=== PATIENT | female | born 1945 | race Caucasian/White ===

== ENCOUNTER 2023-08-23 12:52 | Emergency (ER) | payer MEDICARE, BC, SELFPAY ==
[2023-08-23 12:54] VITALS: BP 157/79
--- NOTE | 2023-08-23 13:31 | ED.GENMED ---
History of Present Illness
<Harika Mike PA-C - Last Filed: 08/26/23 09:09>
General
Chief Complaint: Change in Mental Status
Source: patient and spouse
Exam Limitations: none
Time Seen by Provider: 08/23/23 13:03
Nursing documentation reviewed up to this point in time: agreed with
Travel History
Have you had any contact with someone who has COVID-19?: No
Do you have any symptoms of coronavirus? Fever > 100 degrees, chills, cough, shortness of breath, sore throat, loss of taste or smell, muscle aches, or headache?: No
History of Present Illness
History of Present Illness:
pt is a 78 y/o F with h/o hydrocephalus s/p SENIOR ACCOUNT DIRECTOR shunt (maria fernanda 2021)
here for some mild confusion/brain fog
pt's says that she is sometimes forgetful and that has been worsening the past few months
but today around 10 am while on a phone call to the [facility] pt was more confused than expected. 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
was askign her to do. her noticed it and when she got off the phone, even she noticed it and said she just didn't feel herself.
about an hour later they went to the [employer] and while addressing a check, she made a mistake where she addressed it to be put into the same account that it was in instead of a different account. pt didn't realize she made this mistake until the [place]
pointed it out. her drove them home and they called the PCP, spoke with RN whol told her to come in
pt had a lheadache yesterday which resolved
has had a few days of URI sxs, got tested for covid 3 days ago and was neg
has been using nyquil at night, not in excess.
she otherwise now feels well
denies fever, headache, vision changes, balance problems, incontience, vomiting, diarrhea, cp,s ob, abdominal pain, dysuria, urinary frequency, anxiety.
Past History
<Harika Mike PA-C - Last Filed: 08/26/23 09:09>
Past History
ED Past Medical History: HTN
ED Past Surgical History: None
Social History
Tobacco: Non-smoker
Drug: None
Personal:
Living: with family
Review of Systems
<Harika Mike PA-C - Last Filed: 08/26/23 09:09>
Review of Systems
Allergies reviewed?: Yes
All Other Systems: Not applicable
Phy Exam
<LYLY Morales Last Filed: 08/26/23 09:09>
Physical Exam
Physical Exam:
GENERAL: Alert , in no apparent distress
head: atraumatic, right SENIOR ACCOUNT DIRECTOR shunt nontender, no erythema
EYE: pupils equal and reactive
NECK: Supple
ENT: b/l TM s clear, pharynx nonerythematous no tonsillar hypertrophy or exudates
CARDIAC: Regular rate and rhythm, no edema
LUNGS: Clear breath sounds bilaterally, no acute respiratory distress, no wheezes/rales/rhonchi, occ cough
ABDOMEN: Soft, without focal tenderness, no r/g, no cvat, normal bowel sounds
NEUROLOGICAL: Alert and oriented, no focal neuro deficits
SKIN: Warm and dry, skin intact.
MUSCULOSKELETAL: No edema, well perfused.
PSYCH: Normal and appropriate interaction.
Course
<Harika Mike PA-C - Last Filed: 08/26/23 09:09>
Orders/Labs/Results
Orders:
Orders
08/23/23
CR Skull < 4 Views Urgent
Reason For Exam: SHUNT
08/23/23 13:28
Electrocardiogram (*1) Urgent
Reason for Study: Fatigue / Weakness
CT Head W/o Iv Contrast Urgent
Comment:
Reason For Exam: ams, h/o cigar packer shunt
EKG- Treatment ONCE
08/23/23 13:57
COVID-19 Antigen Urgent
Source: Nasal Swab
Complete Blood Count/With Diff Urgent
Comprehensive Metabolic Panel Urgent
TSH Reflex To Free T4 Urgent
08/23/23 15:11
Consult Neurology [NEUROLOGY CONSULT] Urgent
Consulting Provider: Sri Miner
Was physician already notified: Yes
08/23/23 15:14
CR Abdomen - 2 Views Urgent
Reason For Exam: shutn eval
CR Chest - 2 Views Urgent
Comment:
Reason For Exam: shunt eval
08/23/23 16:34
Urinalysis Reflex To Culture Urgent
Date Specimen was Collected: 08/23/23
Time Specimen was Collected: 16:30
Abnormal Lab Results
08/23/23
13:57
MCH 31.5 H pg
(27.0-31.0)
Absolute Lymphs (auto) 0.6 L 10^3/uL
(1.2-3.4)
Neutrophils % 83.8 H %
(42.2-75.2)
Lymphocytes % 8.2 L %
(20.5-51.1)
Chloride 109 H mmol/L
(98-107)
Glucose 112 H mg/dl
(70-99)
AST 46 H U/L
(14-36)
08/23/23 13:57
08/23/23 13:57
Vital Signs
Initial and Last Documented VS:
Initial Vital Signs
Temp Pulse Resp BP Pulse Ox
98.2 F 96 16 157/79 98
08/23/23 12:54 08/23/23 12:54 02/12/24 12:54 08/23/23 12:54 08/23/23 12:54
Last Documented Vital Signs
Temp Pulse Resp BP Pulse Ox
98.2 F 96 16 138/74 95
08/23/23 12:54 08/23/23 12:54 08/23/23 12:54 08/23/23 16:52 08/23/23 17:00
<Ramehs Bates MD - Last Filed: 08/23/23 16:00>
Orders/Labs/Results
Orders:
Orders
08/23/23
CR Skull < 4 Views Urgent
Reason For Exam: SHUNT
08/23/23 13:28
Electrocardiogram (*1) Urgent
Reason for Study: Fatigue / Weakness
CT Head W/o Iv Contrast Urgent
Comment:
Reason For Exam: ams, h/o cigar packer shunt
EKG- Treatment ONCE
08/23/23 13:57
COVID-19 Antigen Urgent
Source: Nasal Swab
Complete Blood Count/With Diff Urgent
Comprehensive Metabolic Panel Urgent
TSH Reflex To Free T4 Urgent
08/23/23 15:11
Consult Neurology [NEUROLOGY CONSULT] Urgent
Consulting Provider: Sri Miner
Was physician already notified: Yes
08/23/23 15:14
CR Abdomen - 2 Views Urgent
Reason For Exam: shutn eval
CR Chest - 2 Views Urgent
Comment:
Reason For Exam: shunt eval
08/23/23 16:34
Urinalysis Reflex To Culture Urgent
Date Specimen was Collected: 08/23/23
Time Specimen was Collected: 16:30
Abnormal Lab Results
08/23/23
13:57
MCH 31.5 H pg
(27.0-31.0)
Absolute Lymphs (auto) 0.6 L 10^3/uL
(1.2-3.4)
Neutrophils % 83.8 H %
(42.2-75.2)
Lymphocytes % 8.2 L %
(20.5-51.1)
Chloride 109 H mmol/L
(98-107)
Glucose 112 H mg/dl
(70-99)
AST 46 H U/L
(14-36)
08/23/23 13:57
08/23/23 13:57
Vital Signs
Initial and Last Documented VS:
Initial Vital Signs
Temp Pulse Resp BP Pulse Ox
98.2 F 96 16 157/79 98
08/23/23 12:54 08/23/23 12:54 08/23/23 12:54 08/23/23 12:54 08/23/23 12:54
Last Documented Vital Signs
Temp Pulse Resp BP Pulse Ox
98.2 F 96 16 138/74 95
08/23/23 12:54 08/23/23 12:54 08/23/23 12:54 08/23/23 16:52 08/23/23 17:00
<Harika Mike PA-C - Last Filed: 08/26/23 09:09>
MDM/Problems Addressed
Differential Diagnosis Includes:
uti, hydrocephalus/shunt malfunction, infection
MDM/Problems Addressed:
78 y/ F with h/o hydrocephalus s/p cigar packer shunt
here with some mild confusion today noticed by herself and her
pt otherwise feels fine
her vitals stable
her exam is normal
she is able to communicate normally without any focal deficits and does not seem confused
her labs are reassuring
her ct shows some ventriculomegaly but we are not able to compare to more recent scans
i spoke with the CARE PROCESS MANAGER adelita for her surgeon at [facility] where her shunt was placed. i was able to send a video of the ct scan and the NSG attg compared to previous which looked similar;she has always still had some hydrocephalus despite the shunt s o
they think they need to adjust the shunt and that is likely contributing to her confusion
since she is otherwise stable, steady gait etc, she is ok to go home and f/u in2 dasy for this adjustment
sabrina by ed attending who agreed.
<Harika Mike PA-C - Last Filed: 08/26/23 09:09>
*Critical Care Note
Total Time (30-74mins, 75-104mins- exclusive of procedures): Not Applicable
ED Attending Note
<Harika Mike PA-C - Last Filed: 08/26/23 09:09>
-
Portions of this chart may have been created with voice recognition software.� Occasional wrong word or��sound alike� substitutions may have occurred due to the inherent limitations of voice recognition software.
<Ramesh Bates MD - Last Filed: 08/23/23 16:00>
ED Attending Note
Patient seen and examined by attending physician: Yes
ED Attending Note:
I have seen and evaluated the patient with a [id number] encounter. I have spoken to the advance practicer provider and involved in the medical history, the physical exam, medical decision making.
Evaluation and management service: agree unless noted differently below.
Results interpretation: agree unless noted differently below.
Focused HPI: 78-year-old female with past medical history of hypertension, hydrocephalus status post SENIOR ACCOUNT DIRECTOR shunt (performed 2021 at [facility]) who presents to the emergency department for evaluation of slight confusion. Her is at bedside and
describes 2 episodes in the past 24 hours where she demonstrated some subtle confusion/departure from her baseline behavior. He describes an episode where she had some difficulty comprehending a phone call and an episode today where she filled out
a checked and addressed it to the wrong person. She says this is very unusual for her. No persistent confusion. Patient denies headache, vision changes, speech changes, dizziness, gait abnormalities, focal weakness or numbness in her extremities,
urinary issues. No trauma to the head. Referred to the emergency room by PCP for assessment.
Physical exam: Awake alert and oriented x 3. Very pleasant. Vital signs significant for hypertension in triage which is normalized by my assessment. Otherwise within normal limits. Cranial nerves intact 2 through 12. Speech is fluid without
dysarthria or aphasia. No limb ataxia. Ambulatory with a steady gait. Motor and sensory function intact and symmetric 5/5 upper and lower extremities bilaterally.
Medical Decision Makin-year-old female with history as above presents with subtle confusion per . Exam as above. Labs sent off including a CBC and a CMP which were unremarkable. She had a CT head which showed SENIOR ACCOUNT DIRECTOR shunt in appropriate
position but with persistent moderate dilation of the lateral and third ventricle. Concern that this is the etiology of her subtle confusion. Ordered complete shunt series to rule out fracture. JEANNA discussed case with neurosurgery at [facility] to
discuss potential transfer however upon sending CT to them for review they report that it appears essentially stable from prior imaging and with the patient really only exhibiting very subtle symptoms and with a normal neurologic exam, normal vital
signs here they recommended discharge to follow-up in the office on Wednesday at 10 AM as long as shunt series is intact.
Discharge Plan
Departure
Patient Disposition: Home (Routine Discharge)
Date of Disposition: 08/23/23
Time of Disposition: 17:26
Patient with high blood pressure during this ER visit?: No
Condition: Fair
Covid-19: Not Applicable
Discharge Problem:
Confusion
Instructions: Delirium (Confusion) (DC), Ventriculoperitoneal Shunt, Adult (DC)
Prescriptions:
No Action
amlodipine 5 MG tablet
5 mg PO DAILY
donepezil 10 mg Tablet
10 mg PO HS
naproxen sodium [Aleve] 220 mg Tablet
220 mg PO DAILYPRN PRN (Reason: headache)
Centrum Silver 400-250 mcg Tablet,Chewable
1 tab PO DAILY
cholecalciferol (vitamin D3)
1 gummy PO DAILY
cyanocobalamin (vitamin B-12)
1 gummy PO DAILY
Referrals:
Nilda Ferguson, DO [Family Provider] -
Activity Restrictions/Additional Instructions:
You have an appointment at 10 AM in [place] at [facility] with your neurosurgeon on Wednesday for an evaluation for your shunt. This is probably contributing to some of your brain fog. Otherwise your workup here was unremarkable, you
had no signs of urine infection, your blood work was reassuring, you tested negative for COVID. Your shunt series appears to be negative, showing that your shunt looks to be in the right position without any evidence of obstruction or fracture.
You should return immediately to the ER or go to [facility] ER if you are having any worsening symptoms like fever, headache, worsening confusion or any concerns.
\\Otherwise follow-up with Dr. Velarde
Interventions
Interventions:
*Risk Screen - Suicide Last Done: 08/23/23 13:45
*General Assessment Last Done: 08/23/23 13:45
*Neglect/Abuse Screening Last Done: 08/23/23 13:45
ED- Fall Risk Assessment Last Done: 08/23/23 13:45
*ED COVID-19 Vaccine History Last Done: 08/23/23 12:54
*Nursing Disposition Last Done: 08/23/23 17:54
ED- Pulmonary Assessment Last Done: 08/23/23 13:45
ED- Neurological Assessment Last Done: 08/23/23 13:45
ED- Cardiac Assessment Last Done: 08/23/23 13:45
ED Swallowing Screen Last Done: 08/23/23 13:45
Discharge Date and Time
Discharge Date/Time: 08/23/23 17:54
[2023-08-23 13:45] VITALS: BMI 22.1
[2023-08-23 13:53] VITALS: BP 134/77
[2023-08-23 14:00] VITALS: BP 136/76
[2023-08-23 14:15] LABS: % Basophils 0.9 % (0-2); % Eosinophils 0.5 % (0-6); % Immature Granulocytes 0.4 % (0-0.5); % Lymphocytes 8.2 % (20.5-51.1); % Monocytes 6.2 % (1.7-9.3); % Neutrophils 83.8 % (42.2-75.2); Absolute Basophils 0.1 10^3/uL (0-0.2); Absolute Lymphocytes 0.6 10^3/uL (1.2-3.4); Absolute Monocytes 0.5 10^3/uL (0.1-0.6); Absolute Neutrophils 6.3 10^3/uL (1.4-6.5); Hematocrit 42.4 % (37.0-47.0); Hemoglobin 14.6 g/dL (12.0-16.0); Mean Corp Hgb Conc. 34.4 g/dL (33.0-37.0); Mean Corpuscular Hgb 31.5 pg (27.0-31.0); Mean Corpuscular Volume 91.6 fL (81.0-99.0); Nucleated Red Blood Cells % 0 %; Platelet Count 266 10^3/uL (130-400); Red Blood Cell Count 4.63 10^6/uL (4.20-5.40); White Blood Cell Count 7.6 10^3/uL (4.8-10.8)
[2023-08-23 14:30] LABS: ALT (SGPT) 18 U/L (0-35); AST (SGOT) 46 U/L (14-36); Albumin 4.4 g/dl (3.5-5.0); Alkaline Phosphatase 85 U/L (38-126); Blood Urea Nitrogen 15 mg/dl (7-17); Calcium 9.8 mg/dl (8.4-10.2); Carbon Dioxide 26 mmol/L (22-30); Chloride 109 mmol/L (98-107); Estimated Creatinine Clearance 42 ml/min; Glucose 112 mg/dl (70-99); Potassium 4.4 mmol/L (3.5-5.1); Sodium 138 mmol/L (135-145); Total Bilirubin 0.5 mg/dl (0.2-1.3); Total Protein 7.4 g/dl (6.3-8.2); eGFR > 60.00
[2023-08-23 14:36] LABS: COVID-19 Antigen Negative (Negative)
[2023-08-23 15:01] LABS: TSH Reflex To Free T4 1.74 uIU/ml (0.47-4.68)
[2023-08-23 16:51] LABS: Urine Albumin Negative (Neg - Trace); Urine Bilirubin Negative (Negative); Urine Character Clear (Clear); Urine Color Yellow; Urine Glucose Negative (Negative); Urine Ketone Negative (Negative); Urine Leukocyte Negative (Negative); Urine Nitrite Negative (Negative); Urine Occult Blood Negative (Negative); Urine Urobilinogen Negative (Neg - 1+)
[2023-08-23 16:52] VITALS: BP 138/74
--- NOTE | 2023-08-23 18:04 | CON.NEURO ---
Consultation
Order
CC: none
HPI:This is a 78-year-old right-handed woman who presented to [facility] on August 23, 2023 with encephalopathy. According to Mr. Mckeon the patient was attempting to deposit a check written from her check account instead from
her 401K back into her checking account. She also stated ' Oh, I have to feed the cat' after she already fed the cat before the hospital departure.
Ms. Mckeon has a history of [id number] presented with cognitive deficits. She underwent ventriculostomy in 2021 at [facility].
ER VS: normotensive, afebrile
PDMP: Zvkwsr-Hhgbnowj-[id number] 50-325-40 10 tabs filled in on 08/06/2023.
Labs:normal Na, Cr, WBC, UA, gluc-102, neg SARS-COv-2
CT head-Right central approach ventriculostomy catheter tip is located near the intraventricular septum, in expected position. There is moderate dilation of the lateral and third ventricle.
PMH: NPH, MCI, vit D deficiency, Meniere's disease, nephrolithiasis, asthma, hypothyroidism,
PSH: Cochlear implant, mastoidectomy with ossicular chain reconstruction at the age of 16, C sections, R VPS; extracorporeal shock lithotripsy, thyroidectomy� �
SH: , retired patient service rep of [employer] nonsmoker; no history of excessive alcohol use
FH: mother� stroke in her 60s
All:NKDA
ROS:Constitutional: Negative. Negative for chills, fever and unexpected weight change.
HENT: positive for hearing impairment
Eyes: Negative. Negative for photophobia, pain and visual disturbance.
Respiratory: Negative for cough, choking and shortness of breath.
Cardiovascular: Negative for chest pain, palpitations and leg swelling.
Gastrointestinal: Negative for abdominal pain and vomiting.
Endocrine: Negative. Negative for cold intolerance.
Genitourinary: Negative for dysuria, flank pain and urgency.
Musculoskeletal: Negative for back pain, gait problem, neck pain and neck stiffness.
Skin: Negative for rash.
Allergic/Immunologic: Negative. Negative for immunocompromised state.
Neurological: positive for confusion
Psychiatric/Behavioral: Negative for behavioral problems, confusion and hallucinations.
General: Well developed. In no acute distress.
Cardio: Regular rate and rhythm without murmur. Extremities are without cyanosis or edema.
Neuro:
Mental Status: Alert, oriented to person, place, and date. Poor attention and impaired recall. Good fund of knowledge. Follows complex requests across the midline. Impaired comprehension, naming.
Cranial Nerves: . Pupils are equally round and reactive to light. EOMs full. Visual plascencia full to confrontation. No ptosis. No nystagmus. V1-V3 intact to light touch and pinprick bilaterally, symmetric. Face symmetric. Normal hearing AU.
The palate elevated well. SCMs and traps 5/5. Tongue midline. No dysarthria.
Motor: Normal bulk and tone. No pronator or arm drift. Strength 5/5 throughout. No clonus.
Reflexes: + BL grasp
Sensory: Normal vibration at the toes
Coordination: No dysmetria or tremor.
Gait: normal base, arm swing
Assessment and Plan:
I. Progressive encephalopathy
II. NPH
III. MCI
-No driving
-Mediation administration supervision
-Continue Donepezil 10mg QD
-Please check TFTs
-Brain MRI wo [facility]
Routine EEG if brain MRI is unremarkable
-Obtain medical records from [facility]
-OP neuropsychological evaluation
I personally reviewed all radiology and labs along with past medical records pertinent to current medical problems.
Thank you for allowing us to participate in the care of this patient. We will continue to follow. Please do not hesitate to contact us with any questions or concerns.
Subjective/Objective
Subjective Data
Date of Service: August 23, 2023
Objective Data
Vital Signs
Temp Pulse Resp BP Pulse Ox
36.8 C 96 16 138/74 95
08/23/23 12:54 08/23/23 12:54 08/23/23 12:54 08/23/23 16:52 08/23/23 17:00
Lab Results
08/23/23 13:57
08/23/23 13:57
Sodium 138 mmol/L (135-145) 08/23/23 13:57
Potassium 4.4 mmol/L (3.5-5.1) 08/23/23 13:57
BUN 15 mg/dl (7-17) 08/23/23 13:57
Glucose 112 mg/dl (70-99) H 08/23/23 13:57
Calcium 9.8 mg/dl (8.4-10.2) 08/23/23 13:57
Patient Allergies
No Known Allergies Allergy (Verified 08/23/23 12:59)
Modified Clayton Score (MRS)
-
MRS Score:
Medications
-
Home Medications
Medication Instructions Recorded
amlodipine 5 mg tablet 5 mg PO DAILY Blood Pressure 11/18/11
cholecalciferol (vitamin D3) 1 gummy PO DAILY Supplement 08/23/23
cyanocobalamin (vitamin B-12) 1 gummy PO DAILY Supplement 08/23/23
donepezil 10 mg tablet 10 mg PO HS Neurological Condition 08/23/23
multivit with min-folic 1 tab PO DAILY Supplement 08/23/23
acid-lutein 400 mcg-250 mcg
chewable tablet (Centrum Silver)
naproxen sodium 220 mg tablet 220 mg PO DAILYPRN PRN headache 08/23/23
(Aleve)
Vital Signs and Labs
-
Vital Signs and Labs:
Vital Signs
Temp Pulse Resp BP Pulse Ox
36.8 C 96 16 138/74 95
08/23/23 12:54 08/23/23 12:54 08/23/23 12:54 08/23/23 16:52 08/23/23 17:00
Lab Results
08/23/23 13:57
08/23/23 13:57
Sodium 138 mmol/L (135-145) 08/23/23 13:57
Potassium 4.4 mmol/L (3.5-5.1) 08/23/23 13:57
BUN 15 mg/dl (7-17) 08/23/23 13:57
Glucose 112 mg/dl (70-99) H 08/23/23 13:57
Calcium 9.8 mg/dl (8.4-10.2) 08/23/23 13:57
Home Medications
-
Home Medications
amlodipine 5 mg tablet 5 mg PO DAILY Blood Pressure 11/18/11
cholecalciferol (vitamin D3) 1 gummy PO DAILY Supplement 08/23/23
cyanocobalamin (vitamin B-12) 1 gummy PO DAILY Supplement 08/23/23
donepezil 10 mg tablet 10 mg PO HS Neurological Condition 08/23/23
multivit with min-folic acid-lutein 400 mcg-250 mcg chewable tablet (Centrum Silver) 1 tab PO DAILY Supplement 08/23/23
naproxen sodium 220 mg tablet (Aleve) 220 mg PO DAILYPRN PRN headache 08/23/23
== END 2023-08-23 17:54 | disposition home or self-care (01) ==
LOC: EMR 12:52
PROVIDERS: Physician Assistant; CONSULT PHYSICIAN Psychiatry & Neurology Neurology; EMERGENCY PHYSICIAN Emergency Medicine; FAMILY PHYSICIAN Family Medicine
DX: R41.0 Disorientation, unspecified (principal); R53.83 Other fatigue; I10 Essential (primary) hypertension; Z11.52 Encounter for screening for COVID-19; Z98.2 Presence of cerebrospinal fluid drainage device
CPT/HCPCS: 99285; 70250; 70450; 71046; 74019; 80053; 81003; 84443; 85025; 87811; 93005

== ENCOUNTER → 2023-10-13 08:41 | Outpatient (REF) | payer MEDICARE, BC, SELFPAY | LOC: HWRAD 08:41 | PROVIDERS: ATTENDING PHYSICIAN Neurological Surgery; FAMILY PHYSICIAN Family Medicine | DX: G91.2 (Idiopathic) normal pressure hydrocephalus (principal) | CPT/HCPCS: 70450 ==

== ENCOUNTER → 2024-03-24 08:38 | Outpatient (REF) | payer MEDICARE, BC, SELFPAY ==
[2024-03-24 09:32] LABS: % Basophils 1.4 % (0-2); % Eosinophils 5.2 % (0-6); % Immature Granulocytes 0.2 % (0-0.5); % Lymphocytes 27.3 % (20.5-51.1); % Monocytes 10.3 % (1.7-9.3); % Neutrophils 55.6 % (42.2-75.2); Absolute Basophils 0.1 10^3/uL (0-0.2); Absolute Eosinophils 0.3 10^3/uL (0-0.7); Absolute Lymphocytes 1.5 10^3/uL (1.2-3.4); Absolute Monocytes 0.6 10^3/uL (0.1-0.6); Absolute Neutrophils 3.1 10^3/uL (1.4-6.5); Hemoglobin 14.7 g/dL (12.0-16.0); Mean Corp Hgb Conc. 34.2 g/dL (33.0-37.0); Mean Corpuscular Hgb 31.9 pg (27.0-31.0); Mean Corpuscular Volume 93.3 fL (81.0-99.0); Mean Platelet Volume 9.1 fL (7.4-10.4); Nucleated Red Blood Cells % 0 %; Platelet Count 269 10^3/uL (130-400); Red Blood Cell Count 4.61 10^6/uL (4.20-5.40); Red Cell Dist. Width 11.9 % (11.5-14.5); White Blood Cell Count 5.6 10^3/uL (4.8-10.8)
[2024-03-24 10:07] LABS: ALT (SGPT) 19 U/L (0-35); AST (SGOT) 47 U/L (14-36); Albumin 4.5 g/dl (3.5-5.0); Alkaline Phosphatase 74 U/L (38-126); Blood Urea Nitrogen 16 mg/dl (7-17); Calcium 10.5 mg/dl (8.4-10.2); Carbon Dioxide 29 mmol/L (22-30); Chloride 103 mmol/L (98-107); Glucose 80 mg/dl (70-99); HDL Cholesterol 104 mg/dl; LDL Cholesterol, Calculated 107 mg/dl; Potassium 4.5 mmol/L (3.5-5.1); Sodium 143 mmol/L (135-145); Total Bilirubin 0.6 mg/dl (0.2-1.3); Total Cholesterol 238 mg/dl (50-199); Total Protein 7.1 g/dl (6.3-8.2); Triglyceride 139 mg/dl (10-149); Very Low Density Lipoprotein 27 mg/dl (0-30); eGFR > 60.00
[2024-03-24 10:33] LABS: TSH 2.33 uIU/ml (0.47-4.68)
== END ==
LOC: RCS 08:38
PROVIDERS: ATTENDING PHYSICIAN Family Medicine
DX: R01.1 Cardiac murmur, unspecified (principal); G91.2 (Idiopathic) normal pressure hydrocephalus; G31.84 Mild cognitive impairment of uncertain or unknown etiology; I10 Essential (primary) hypertension; Z13.220 Encounter for screening for lipoid disorders; E55.9 Vitamin D deficiency, unspecified
CPT/HCPCS: 36415; 80053; 80061; 82306; 84443; 85025; 93306

== ENCOUNTER → 2024-03-27 09:40 | Outpatient (REF) | payer MEDICARE, BC, SELFPAY ==
[2024-03-27 10:04] LABS: Ionized Calcium 1.27 mMOL/L (1.15-1.33)
[2024-03-27 11:05] LABS: Calcium 10.7 mg/dl (8.4-10.2)
[2024-03-29 10:25] LABS: Intact PTH 111.2 pg/ml (13.6-85.8)
== END ==
LOC: REG 09:40
PROVIDERS: ATTENDING PHYSICIAN Family Medicine
DX: E83.52 Hypercalcemia (principal)
CPT/HCPCS: 36415; 82330; 83970

== ENCOUNTER → 2024-04-11 15:11 | Outpatient (REF) | payer MEDICARE, BC, SELFPAY | LOC: HWRAD 15:11 | PROVIDERS: ATTENDING PHYSICIAN Neurological Surgery; FAMILY PHYSICIAN Family Medicine | DX: G91.2 (Idiopathic) normal pressure hydrocephalus (principal) | CPT/HCPCS: 70450 ==

== ENCOUNTER 2024-12-05 13:37 | Emergency (ER) | payer MEDICARE, BC, SELFPAY ==
[2024-12-05 13:48] VITALS: BP 164/86
[2024-12-05 14:02] VITALS: BMI 20.1
[2024-12-05] MEDS: ADACEL 0.5 ML IM (16:19)
[2024-12-05] MEDS: AUGMENTIN 875 MG/125 MG 1 TABLET PO (16:19)
--- NOTE | 2024-12-05 16:20 | ED.GENMED ---
History of Present Illness
General
Chief Complaint: Skin Surface Trauma
Source: patient
Exam Limitations: none
Time Seen by Provider: 12/05/24 15:59
Nursing documentation reviewed up to this point in time: agreed with
History of Present Illness
History of Present Illness:
Patient is a 79-year-old female with history of hypertension who presents to the emergency department with concerns of a cat scratch to her right hand. Patient states that she was sitting at her kitchen table around 2 PM today when the cat got
scared by family ember's dog and quickly tried to get off table and accidentally scratched the patient's right hand. Patient does note that the cat was hissing at the time and is unsure if there may have been a component of a bite, as well.
Patient states bleeding stopped relatively quickly although a large bump/bruise appeared on the back of her right hand prompting visit to the emergency department.
She denies any other injury sustained. She denies any numbness/tingling or limited range of motion in right hand/digits.
Patient states cat is fully up-to-date on all vaccinations. However�patient is unsure when last tetanus shot was.
Past History
Past History
ED Past Medical History: HTN
ED Past Surgical History: None
Social History
Tobacco: Non-smoker
Drug: None
Personal:
Living: with family
Review of Systems
Review of Systems
Allergies reviewed?: Yes
All Other Systems: ROS reviewed and negative except as documented in HPI and ROS
Phy Exam
Physical Exam
Physical Exam:
Vitals: Patient's vital signs are stable. Afebrile
General: Patient is well appearing, no acute distress
Skin: Hematoma to right dorsal hand with small pinpoint puncture wound. Small abrasion noted on right dorsal hand. Proximally 0.5 cm wound on volar aspect of right index finger, bleeding minimally.
Head: Normocephalic, atraumatic
Throat: Protecting airway
Neck: Normal ROM, no cervical spine tenderness
Cardiac: Regular rate
Pulm: No apparent respiratory distress
Abdomen: Nondistended
Extremities: Hematoma and associated small wounds to right hand as described above. Patient has full range of motion in right hand and digits against resistance. 2+ palpable radial pulse. Normal capillary refill of RLE. Sensation intact.
Neuro: Grossly intact
Psychiatric: Normal affect.
Course
Orders/Labs/Results
Orders:
Orders
12/05/24 16:15
Amoxicillin 875 mg/Clav 125 mg [Augmentin 875 mg/125 mg] 1 tablet PO NOW STA
Tetanus/Diphth/Acelpertussis [Adacel] 0.5 ml IM .ONCE ONE
Vital Signs
Initial and Last Documented VS:
Initial Vital Signs
Temp Pulse Resp BP Pulse Ox
98.1 F 86 17 164/86 99
12/05/24 13:48 12/05/24 13:48 12/05/24 13:48 12/05/24 13:48 12/05/24 13:48
Last Documented Vital Signs
Temp Pulse Resp BP Pulse Ox
98.1 F 86 17 164/86 99
12/05/24 13:48 12/05/24 13:48 12/05/24 13:48 12/05/24 13:48 12/05/24 13:48
MDM/Problems Addressed
Differential Diagnosis Includes:
Not limited to: Abrasion, laceration, hematoma, etc.
MDM/Problems Addressed:
79-year-old female with hematoma to right hand after cat scratch today. She reports that her cat became scared jumping off the table quickly accidentally scratching her right hand and right index finger. She does not believe the cat bit her. No
other injuries sustained. She denies any numbness/ tingling of right hand/digits.
Vitals and physical exam as above. There�s an obvious hematoma on the right dorsal hand with pinpoint puncture wound as well as small wound on volar aspect of right index finger bleeding minimally. Patient has normal range of motion, excellent
sensation, and normal capillay refill. No evidence of foreign body. No bony tenderness of right hand/fingers - do not feel xray imaging indicated.
Will update patient�s tetanus shot. Given uncertainty surrounding whether there may have been a component of a cat bite � will initiate prophylactic antibiotic treatment with augmentin.
Wounds irrigated and dressed. Pressure bandage applied to hematoma. Advised compression, ice followed by heat. Discussed importance of monitoring very closely for infection and other return precautions. Patient will follow with primary care. Patient
comfortable w/ plan.
Chronic conditions affecting care:
Hypertension
Acute Exacerbation and/or Progression of Chronic Illness:
Acutely hypertensive
*Pulse Oximetry
Patient hypoxic: no
*EKG
Interpreted by ED Provider?: NA
*Training Officer Interpretation
Rate: Training Officer- N/A
*Critical Care Note
Total Time (30-74mins, 75-104mins- exclusive of procedures): Not Applicable
Patient Management
Escalation/DeEscalation of care consider admission/obs:
Admit not indicated
ED Attending Note
-
Portions of this chart may have been created with voice recognition software.� Occasional wrong word or��sound alike� substitutions may have occurred due to the inherent limitations of voice recognition software.
Discharge Plan
Departure
Patient Disposition: Home (Routine Discharge)
Date of Disposition: 12/05/24
Time of Disposition: 16:26
Patient with high blood pressure during this ER visit?: Yes
Condition: Good
Covid-19: Not Applicable
Discharge Problem:
Hematoma of right hand, Cat scratch of right hand
Instructions: Wound Care (DC), BLOOD PRESSURE, Hematoma
Prescriptions:
New
amoxicillin-pot clavulanate 875-125 mg tablet
1 tab PO BID 5 Days Qty: 10 0RF
No Action
amlodipine 5 MG tablet
5 mg PO DAILY
donepezil 10 mg Tablet
10 mg PO HS
naproxen sodium [Aleve] 220 mg Tablet
220 mg PO DAILYPRN PRN (Reason: headache)
Centrum Silver 400-250 mcg Tablet,Chewable
1 tab PO DAILY
cholecalciferol (vitamin D3)
1 gummy PO DAILY
cyanocobalamin (vitamin B-12)
1 gummy PO DAILY
Referrals:
Nilda Ferguson, [Family Provider] - Follow up in 5-7 days
Activity Restrictions/Additional Instructions:
RETURN TO THE EMERGENCY DEPARTMENT WITH ANY FEVERS, CHILLS, BLEEDING FROM RIGHT HAND THAT WILL NOT STOP AT HOME, OR ANY SIGNS OF INFECTION INCLUDING SIGNIFICANT REDNESS OR WARMTH AROUND HEMATOMA OF RIGHT HAND, WORSENING PAIN, ANY NUMBNESS/TINGLING
IN RIGHT HAND/FINGERS, OR ANY OTHER CONCERNS
- As discussed�it appears that you have a hematoma on your right hand. You should apply ice for the next 24 hours and then switch to warm compresses. You should keep compressive dressing over the hematoma. This should resorb over the next few
weeks. Monitor very closely for signs of infection.
- A prescription for an antibiotic has been sent to your pharmacy. You should take this twice a day for the next 5 days.
- Your tetanus shot was updated while in the emergency department today.
- Follow-up with your primary care within the week to ensure symptoms are improving/for further evaluation.
Monitor your symptoms closely return to the emergency department with any acute worsening/new symptoms or any signs of infection.
Interventions
Interventions:
*Risk Screen - Suicide Last Done: 12/05/24 13:51
*General Assessment Last Done: 12/05/24 13:51
*Neglect/Abuse Screening Last Done: 12/05/24 13:51
*ED COVID-19 Vaccine History Last Done: 12/05/24 13:51
*Nursing Disposition Last Done: 12/05/24 16:39
ED-Skin Assessment Last Done: 12/05/24 14:02
Discharge Date and Time
Discharge Date/Time: 12/05/24 16:40
Print Language: JORDANIAN
== END 2024-12-05 16:40 | disposition home or self-care (01) ==
LOC: EMR 13:37
PROVIDERS: EMERGENCY PHYSICIAN Emergency Medicine; FAMILY PHYSICIAN Family Medicine
DX: S60.221A Contusion of right hand, initial encounter (principal); S60.511A Abrasion of right hand, initial encounter; W55.03XA Scratched by cat, initial encounter; Z23 Encounter for immunization; I10 Essential (primary) hypertension
CPT/HCPCS: 99282; 90471; 90715